=== PATIENT | male | born 1970 | race Caucasian/White ===

== ENCOUNTER 2017-01-23 10:54 | Day surgery (SDC) | payer OTHER ==
[~2017-01-23] VITALS: Ht 170.2 cm; Wt 97.1 kg
[2017-01-23 11:59] VITALS: Ht 170.2 cm; Wt 97.1 kg
[2017-01-23] MEDS ORDERED: FORMOTEROL (12:22)
[2017-01-23] MEDS ORDERED: OMEPRAZOLE (12:22)
[2017-01-23] MEDS ORDERED: MOMETASONE (12:22)
[2017-01-23] MEDS ORDERED: VENTOLIN INHALER PRN (12:22)
[2017-01-23 12:41] VITALS: BP 136/89; PULSE 97; RESP 27
[2017-01-23] MEDS ORDERED: LIDOCAINE 2% (SDV) 5 ML INJ ONE (13:00)
[2017-01-23] MEDS ORDERED: PROPOFOL 20 ML ONE (13:00)
--- NOTE | 2017-01-23 13:11 | OPPN ---
Date/Time of Note Date/Time of Note DATE: 01/23/17 TIME: 13:10 Operative Report Preoperative Diagnosis Abdominal pain Chronic heartburn Postoperative Diagnosis Hiatal hernia Reflux esophagitis with erosions Gastritis with erosions Operation/Procedure Performed Esophagogastroduodenoscopy and biopsy Surgeon see signature line student assistant None Anesthesia: MAC Estimated blood loss: none Transfusion Required none Specimen Gastric mucosal biopsy Grafts/Implants none Complications none JOVITA DUMONT MD Jan 23, 2017 13:11
[2017-01-23 13:37] VITALS: BP 127/79; PULSE 92; RESP 22
--- NOTE | 2017-01-24 02:59 | GILP ---
DATE OF PROCEDURE: NAME OF PROCEDURE: Esophagogastroduodenoscopy and biopsy. SURGEON: Wally Morales MD PREOPERATIVE DIAGNOSES: 1. Abdominal pain. 2. Chronic heartburn. POSTOPERATIVE DIAGNOSES: 1. Hiatal hernia. 2. Reflux esophagitis with erosions. 3. Gastritis with erosions. 4. Gastric mucosal biopsies were taken for Helicobacter pylori test. INDICATION FOR THE PROCEDURE: Mr. Josue Hansen is a 46-year-old male patient who had upper abdomi nal pain and chronic heartburn, not responding to therapy. The patient was scheduled for endoscopic examination for further evaluation. The procedure and possible complications are well explained to the patient; he understood and consen rc to the procedure. DESCRIPTION OF PROCEDURE: Under the influence of anesthesia, the gastroscope was carefully introduc ed into the esophagus and under direct vision, it was advanced to the stomach and through the pyloru s into the duodenal bulb and descending duodenum. FINDINGS: ESOPHAGUS: The patient had hiatal hernia with reflux esophagitis and erosions. STOMACH: He had gastritis with erosions. Gastric mucosal biopsies were taken for H. pylori test. DUODENUM: Normal. He tolerated the procedure very well and there was no complication from the procedure. At the end o f the procedure, he was awake with stable vital signs and he was discharged home to the care of his family. IMPRESSION: Please see postoperative diagnosis. PLAN: 1. Continue omeprazole. 2. Add Zantac 300 mg p.o. at bedtime. 3. Await H. pylori test report. Dictated By: WALLY MENA/JARRED Conf#: [id number] DID#: [id number]
--- NOTE | 2017-01-24 13:01 | CONS ---
DATE OF ADMISSION: 01/23/2017 DATE OF CONSULTATION: 01/14/2017 PREOPERATIVE GASTROENTEROLOGY CONSULTATION I thank you very much for this kind referral. HISTORY OF PRESENT ILLNESS: Mr. Josue Hansen is a 46-year-old male patient who has been referred to me for further evaluation of upper abdominal pain and chronic heartburn not completely responding to therapy with omeprazole. No past history of peptic ulcer disease, not on nonsteroidal anti-infl ammatory agents. Appetite is good. No weight loss. No gallstones or liver disease. No change in bowel habit or rectal bleeding, not hypertensive or diabetic. No heart disease. He has bronchial a sthma. No kidney disease, nonsmoker. No alcohol abuse, no family history of gastrointestinal tract neoplasm. ALLERGIC TO CODEINE. MEDICATIONS: 1. Omeprazole. 2. Ventolin inhaler. 3. Dulera inhaler. PHYSICAL EXAMINATION: He is 5 feet 7 inches tall and he weighs 215 pounds. HEART: Normal heart sounds. LUNGS: Clear. ABDOMEN: Soft. No masses. Normal bowel sounds, normal neurological exam. IMPRESSION: 1. Upper abdominal pain and chronic heartburn, not responding to therapy with omeprazole. 2. Bronchial asthma. 3. ALLERGY TO CODEINE. PLAN: Endoscopic examination for further evaluation. Because of the obesity with a short thick nec k, he needs monitored anesthesia care for the procedure. The procedure and possible complications are well explained to the patient. He understands and cons ents to the procedure. I thank you once again. With warmest personal regards, Jovita Morales MD Dictated By: JOVITA MENA/JARRED Conf#: [id number] DID#: [id number]
== END 2017-01-23 15:22 | disposition home or self-care (01) ==
LOC: GIL 10:54
PROVIDERS: ATTEND Internal Medicine Gastroenterology
DX: K21.0 Gastro-esophageal reflux disease with esophagitis (principal); K22.10 Ulcer of esophagus without bleeding; K44.9 Diaphragmatic hernia without obstruction or gangrene; K29.70 Gastritis, unspecified, without bleeding; K25.9 Gastric ulcer, unspecified as acute or chronic, without hemorrhage or perforation; E66.9 Obesity, unspecified; Z68.33 Body mass index [BMI] 33.0-33.9, adult
CPT/HCPCS: 87081